=== PATIENT | female | born 1955 | race Caucasian/White ===

== ENCOUNTER 2018-07-04 13:14 | Day surgery (SDC) | payer BC ==
[~2018-07-04] VITALS: Ht 170.2 cm; Wt 89.5 kg
[~2018-07-04 13:14] MED LIST: ATOR40TA PO; Advil200 M1 PO; Budeprion Xl300 MG PO; CALCIUM + D3 E1 EACH PO; CLON.5 PO; DULO60 PO; EZET10-20 PO; FISH OIL 1,0001 EAC1 PO; FLUO20; HYDMOR4 PO; HYDPAM50 PO; LEVOXYL; LEVSOD100 PO; METAMUCIL660 GM PO; OXYACE5T PO; QUET200 PO; QUET25; RXTRAM50 PO; SERT100 PO; [UNRECOGNIZED DRUG - OTHER]
== END 2018-07-04 14:52 | disposition home or self-care (01) ==
LOC: ORSCSDS 13:14
PROVIDERS: Internal Medicine Gastroenterology
PROC: 0DBH8ZX Excision of Cecum, Via Natural or Artificial Opening Endoscopic, Diagnostic (ICD-10-PCS; principal; 2018-07-04 14:30)
PROC: 0DBK8ZX Excision of Ascending Colon, Via Natural or Artificial Opening Endoscopic, Diagnostic (ICD-10-PCS; principal; 2018-07-04 14:30)
PROC: 0DBN8ZX Excision of Sigmoid Colon, Via Natural or Artificial Opening Endoscopic, Diagnostic (ICD-10-PCS; principal; 2018-07-04 14:30)
DX: Z12.11 Encounter for screening for malignant neoplasm of colon (principal); Z86.010 Personal history of colon polyps; K57.30 Diverticulosis of large intestine without perforation or abscess without bleeding; D12.0 Benign neoplasm of cecum; D12.2 Benign neoplasm of ascending colon; D12.5 Benign neoplasm of sigmoid colon; E03.9 Hypothyroidism, unspecified; Z87.891 Personal history of nicotine dependence; Z79.899 Other long term (current) drug therapy
CPT/HCPCS: 88305; J7120

== ENCOUNTER → 2019-01-17 | Outpatient (CLI) | payer BC ==
[~2019-01-17] MED LIST changes: +ALPR1
[2019-01-17 13:10] LABS: BASOPHILS ABSOLUTE AUTO 0.04 K/mm3 (0.00-0.23); BASOPHILS PERCENT AUTO 1 % (0-2); EOSINOPHILS ABSOLUTE AUTO 0.09 K/mm3 (0.00-0.68); EOSINOPHILS PERCENT AUTO 1 % (0-6); Hemoglobin 15.1 g/dL (11.5-16.0); IMMATURE GRAN ABSOLUTE AUTO 0.02 K/mm3 (0.00-0.10); IMMATURE GRAN PERCENT AUTO 0 % (0-1); LYMPHOCYTES ABSOLUTE AUTO 2.25 K/mm3 (0.84-5.20); LYMPHOCYTES PERCENT AUTO 30 % (21-46); MONOCYTES ABSOLUTE AUTO 0.69 K/mm3 (0.16-1.47); MONOCYTES PERCENT AUTO 9 % (4-13); Mean Corpuscular HGB 30.6 pg (26.0-34.0); Mean Corpuscular HGB Conc 32.8 g/dL (31.5-36.5); Mean Corpuscular Volume 93 fL (80-100); Mean Platelet Volume 10.5 fL (9.1-12.4); NEUTROPHILS PERCENT AUTO 59 % (41-73); Platelet Count 324 K/mm3 (150-400); RDW Coefficient Variation 12.3 % (11.7-14.2); RDW Standard Deviation 42.5 fL (35.1-46.3); Red Blood Cell Count 4.93 M/mm3 (3.80-5.20); White Blood Cell Count 7.59 K/mm3 (4.00-11.30)
[2019-01-17 13:21] LABS: Alanine Aminotransfer (ALT/SGP 15 U/L (12-78); Albumin, Blood 3.9 g/dL (3.4-5.0); Albumin/Globulin Ratio 1.2 (0.8-1.8); Alk Phos 88 U/L (40-126); Anion Gap 10 mmol/L (6-16); Aspartate Aminotrans (AST/SGOT 16 U/L (12-37); Bilirubin, Total 0.4 mg/dL (0.1-1.0); Blood Urea Nitrogen 10 mg/dL (8-24); Bun/Creatinine Ratio 12.5 (12.0-20.0); CO2, Blood 25 mmol/L (21-32); Calcium, Blood 9.2 mg/dL (8.5-10.1); Chloride, Blood 103 mmol/L (98-108); Globulin, Blood 3.2 g/dL (2.2-4.0); Glomerular Filtration Rate >60 (60-); Glucose, Blood 103 mg/dL (70-99); Potassium, Blood 4.1 mmol/L (3.5-5.5); Sodium, Blood 138 mmol/L (136-145); Total Protein, Blood 7.1 g/dL (6.4-8.2)
== END | disposition home or self-care (01) ==
LOC: LAB SHORT 13:05 → LAB EV 13:05
PROVIDERS: Physician Assistant
DX: R10.9 Unspecified abdominal pain (principal)
CPT/HCPCS: 80053; 83690; 85025

== ENCOUNTER 2019-01-27 13:04 | Day surgery (SDC) | payer BC ==
[~2019-01-27] VITALS: Ht 170.2 cm; Wt 83.3 kg
[~2019-01-27 13:04] MED LIST changes: -ALPR1
[2019-01-27] MEDS ORDERED: ALPR1 (14:14)
--- NOTE | 2019-01-27 15:40 | NUR ---
01/27/19 1540 Nery Erazo PRESCRIPTION FOR METOCLOPRAMIDE DISCUSSED WITH PATIENT AND SPOUSE, AND THEN CALLED INTO [facility] IN [place] PER PATIENT REQUEST.
== END 2019-01-27 15:39 | disposition home or self-care (01) ==
LOC: ORSCSDS 13:04
PROVIDERS: Internal Medicine Gastroenterology
PROC: 0DB48ZX Excision of Esophagogastric Junction, Via Natural or Artificial Opening Endoscopic, Diagnostic (ICD-10-PCS; principal; 2019-01-27 14:15)
PROC: 0DB68ZX Excision of Stomach, Via Natural or Artificial Opening Endoscopic, Diagnostic (ICD-10-PCS; principal; 2019-01-27 14:15)
PROC: 0DB98ZX Excision of Duodenum, Via Natural or Artificial Opening Endoscopic, Diagnostic (ICD-10-PCS; principal; 2019-01-27 14:15)
DX: R10.84 Generalized abdominal pain (principal); R11.2 Nausea with vomiting, unspecified; K21.9 Gastro-esophageal reflux disease without esophagitis; K29.70 Gastritis, unspecified, without bleeding; R14.0 Abdominal distension (gaseous); Z79.899 Other long term (current) drug therapy
CPT/HCPCS: 87081; 88305; 88342; J2250; J2704; J7120

== ENCOUNTER → 2019-10-31 | Outpatient (CLI) | payer BC ==
[~2019-10-31] MED LIST changes: +ALPR1
== END | disposition home or self-care (01) ==
LOC: LAB 13:30 → LAB SHORT 13:30
DX: N90.89 Other specified noninflammatory disorders of vulva and perineum (principal)
CPT/HCPCS: 87070; 87205

== ENCOUNTER 2021-09-15 09:10 | Day surgery (SDC) | payer BC ==
[~2021-09-15] VITALS: Ht 165.1 cm; Wt 73.4 kg
[2021-09-15] MEDS ORDERED: ESCI10 (09:38)
== END 2021-09-15 11:10 | disposition home or self-care (01) ==
LOC: ORSCSDS 09:10
PROVIDERS: Podiatrist Foot & Ankle Surgery
PROC: 0QBQ0ZZ Excision of Right Toe Phalanx, Open Approach (ICD-10-PCS; principal; 2021-09-15 10:30)
DX: M89.8X7 Other specified disorders of bone, ankle and foot (principal); F41.9 Anxiety disorder, unspecified; F31.9 Bipolar disorder, unspecified; Z87.891 Personal history of nicotine dependence; Z79.899 Other long term (current) drug therapy
CPT/HCPCS: J0171; J0690; J1100; J2250; J2405; J2704; J3010; J7120

== ENCOUNTER 2025-02-27 12:25 | Day surgery (SDC) | payer OTHER ==
[~2025-02-27] VITALS: Ht 170.2 cm; Wt 84.1 kg
[~2025-02-27 12:25] MED LIST changes: +ABILIFY MYCITE5 M2 PO; -ALPR1; +ALPR1 PO; +Balanced Salt Epinephrine Irrigation Solution 500 mL IR SCH; +ESCI10; +LEVSOD25 PO; +Moxifloxacin HCL 0.5 MG/0.1 ML 0.4MLSYR RIGHTEYE SCH; +Norco 5-325 Ta1 EACH PO; +Ondansetron 4 MG SoluTab MM PRN; +PHENYLEPHRINE\\TROPICAMIDE\\TETRACAINE OPHTHALMIC DILATING SOLN RIGHTEYE PRN; +Povidone-Iodine 450 DROP/30 ML Solution ONE; +Povidone-Iodine 450 DROP/30 ML Solution RIGHTEYE SCH; +SUBVENITE PO; +TERBINAFINE TOP; +Tetracaine HCl/Pf 0.5% Opth Soln 4 ml ONE
[2025-02-27] MEDS ORDERED: VALSARTAN80 MG PO (12:49)
--- NOTE | 2025-02-27 12:53 | NUR ---
02/27/25 [id number] Magy Nguyen CALL LIGHT WITHIN REACH. PT ON CONTINOUS PULSE OXIMETER FOR CLOSE MONITORING
--- NOTE | 2025-02-27 13:18 | NUR ---
02/27/25 1318 Glo Ochoa HR:67 BP:155/89 RR:14 SPO2:96% ON 10L BLOW BY O2
[2025-02-27 13:35] VITALS: BP 176/76
--- NOTE | 2025-02-27 13:47 | NUR ---
02/27/25 3882 Taina Good INSTRUCTED FRIEND TO PULL AROUND
== END 2025-02-27 13:55 | disposition home or self-care (01) ==
LOC: ORSCSDS 12:25
PROVIDERS: Student in an Organized Health Care Education/Training Program
PROC: 08RJ3JZ Replacement of Right Lens with Synthetic Substitute, Percutaneous Approach (ICD-10-PCS; principal; 2025-02-27 14:00)
DX: H25.813 Combined forms of age-related cataract, bilateral (principal); F31.9 Bipolar disorder, unspecified; F41.9 Anxiety disorder, unspecified; I25.10 Atherosclerotic heart disease of native coronary artery without angina pectoris; E78.5 Hyperlipidemia, unspecified; Z87.891 Personal history of nicotine dependence; E07.9 Disorder of thyroid, unspecified; Z79.899 Other long term (current) drug therapy
CPT/HCPCS: A9270; V2632

== ENCOUNTER 2025-03-06 06:56 | Day surgery (SDC) | payer OTHER ==
[~2025-03-06] VITALS: Ht 170.2 cm; Wt 84.6 kg
[~2025-03-06 06:56] MED LIST changes: +Moxifloxacin HCL 0.5 MG/0.1 ML 0.4MLSYR LEFTEYE SCH; -Moxifloxacin HCL 0.5 MG/0.1 ML 0.4MLSYR RIGHTEYE SCH; +PHENYLEPHRINE\\TROPICAMIDE\\TETRACAINE OPHTHALMIC DILATING SOLN LEFTEYE PRN; -PHENYLEPHRINE\\TROPICAMIDE\\TETRACAINE OPHTHALMIC DILATING SOLN RIGHTEYE PRN; +Povidone-Iodine 450 DROP/30 ML Solution LEFTEYE SCH; -Povidone-Iodine 450 DROP/30 ML Solution RIGHTEYE SCH; +VALSARTAN80 MG PO
--- NOTE | 2025-03-06 07:44 | NUR ---
03/06/25 0744 Kera Bucio PT STATES ANXIETY WAS AN 8/10 PRIOR TO VALIUM ADMINISTRATION. VALIUM 10MG ADMINISTERED AT 0737. PULSE OXIMETRY IN PLACE SHOWING SPO2 OF 97% ON RA. TETRACAINE IN AT 0740 PLEDGETT IN AT 0741 PT TOLERATED WELL. SIDE RAILS UP. CALL LIGHT IN REACH.
--- NOTE | 2025-03-06 08:37 | NUR ---
03/06/25 0837 Quyen Macias 0837 BP:164/73 HR:59 O2:100% RESP:16
[2025-03-06 08:50] VITALS: BP 165/80
--- NOTE | 2025-03-06 08:57 | NUR ---
03/06/25 0857 Taina Good NOTIFIED RIDE TO PULL CAR AROUND
== END 2025-03-06 09:00 | disposition home or self-care (01) ==
LOC: ORSCSDS 06:56
PROVIDERS: Student in an Organized Health Care Education/Training Program
PROC: 08RK3JZ Replacement of Left Lens with Synthetic Substitute, Percutaneous Approach (ICD-10-PCS; principal; 2025-03-06 08:30)
DX: H25.812 Combined forms of age-related cataract, left eye (principal); Z96.1 Presence of intraocular lens; F31.9 Bipolar disorder, unspecified; F41.9 Anxiety disorder, unspecified; I25.10 Atherosclerotic heart disease of native coronary artery without angina pectoris; E78.5 Hyperlipidemia, unspecified; E07.9 Disorder of thyroid, unspecified; Z79.899 Other long term (current) drug therapy; Z87.891 Personal history of nicotine dependence
CPT/HCPCS: A9270; J2003; V2632